=== PATIENT | male | born 1945 | race Hispanic/Latino ===

== ENCOUNTER 2019-06-22 10:23 | Day surgery (SDC) | payer OTHER ==
[2019-06-20 16:25] LABS: Absolute Lymphocytes (CBC) 1.7 K/uL (0.7-4.9); Basophils % 0.5 % (0-1.3); Lymphocytes % 22.2 % (15.3-44.8); MPV 8.7 fL (7.6-11.3)
[2019-06-20 16:29] LABS: Albumin 4.3 g/dL (3.4-5.0); Bilirubin Total 1.1 mg/dL (0.2-1.0); Potassium 4.7 mmol/L (3.5-5.1); Protein, Total 8.5 g/dL (6.4-8.2)
--- NOTE | 2019-06-20 18:25 | EKG ---
Test Date: 2019-06-20 Test Time: 15:55:12 Marina Manager: STEVEN MEASUREMENT RESULTS: Intervals: Rate: 97 NJ: 156 QRSD: 96 QT: 336 QTc: 426 Bond: P: 44 NJ: 156 QRS: 50 T: 4 INTERPRETIVE STATEMENTS: Normal sinus rhythm Cannot rule out Anterior infarct, age undetermined Abnormal ECG Compared to ECG 06/10/2012 16:09:17 Myocardial infarct finding now present Left-axis deviation no longer present Electronically Signed On 06-20-19 18:24:17 CDT by Dre Rooney
[2019-06-22] MEDS ORDERED: Ringers Lactate 1,000 ML IV ONE (10:41)
[2019-06-22] MEDS ORDERED: CEFAZOLIN/SWI 1gm 1 GM/10 ML SYR ONE (10:41)
[2019-06-22] MEDS ORDERED: PROPOFOL 200 MG/20 ML VIAL IV ONE (10:57)
[2019-06-22] MEDS ORDERED: KETOROLAC 30 MG/ML INJ ONE (10:57)
[2019-06-22] MEDS ORDERED: MIDAZOLAM HCL 2 MG/2 ML INJ ONE (10:57)
[2019-06-22] MEDS ORDERED: LIDOCAINE 2% MPF 5 ML VIAL ONE (10:57)
[2019-06-22] MEDS ORDERED: FENTANYL CITR 250 MCG/5 ML ONE (10:57)
[2019-06-22] MEDS ORDERED: EPHEDRINE SULF 50 MG/ML VIAL ONE (11:47)
--- NOTE | 2019-06-22 13:10 | RAD REPORT ---
EXAM DESCRIPTION: RAD - Wrist Left 2 View - 06/22/2019 1:04 pm CLINICAL HISTORY: Radial fracture FINDINGS: Intraoperative images demonstrate Sideplate and screws which affix a distal radial fractur e Twenty fluoroscopic spot images obtained Surgery performed by Dr Jones. Fluoroscopy time 2.3 minutes
--- NOTE | 2019-06-22 13:26 | P.BOP ---
Preoperative diagnosis: left 2 part comminuted intraarticular distal radius fracture Postoperative diagnosis: same Primary procedure: ORIF with fixation of 2 intraarticular fragments Estimated blood loss: 10 ccs Anesthesia: General Complications: None Transferred to: Recovery Room Condition: Good
[2019-06-22 13:36] VITALS: O2SAT 97
[2019-06-22 14:16] VITALS: BP 160/80; TEMP 97
[2019-06-22] MEDS ORDERED: CODEINE 30MG/APAP 300MG TAB ONE (14:25)
--- NOTE | 2019-06-23 00:25 | OP ---
Date of Procedure: 06/22/2019 Surgeon: Zac Jones MD Preoperative Diagnosis: Left distal radius comminuted intraarticular fracture. Estimated Blood Loss: Less than 10 mL. Complications: There were no complications. Specimens: No pathology specimens sent. Indication For Operation: The patient is a 74-year-old gentleman, who unfortunately injured his left upper extremity. He was seen in my office. X-rays demonstrated a comminuted intraarticular shorten ed and angulated fracture of the distal radius. All risks, benefits, and alternatives of different m ethods of addressing have been discussed with the patient, also had a significant amount of discussio n regarding nonoperative treatment. He says he understands everything as presented and at that time, opts for operative intervention. Risks, benefits, and alternatives of this were again discussed. H e states he understands things as presented and wishes to proceed. Description Of Procedure: Patient was taken to the operating room and placed in supine position. Ge neral anesthesia was obtained by Anesthesia staff. Following this, a well-padded tourniquet was plac ed on superior left arm. The left upper extremity was then prepped and draped in sterile fashion for the procedure. Following this, the arm was then elevated, but not exsanguinated. Tourniquet was ra ised. A standard volar approach of Yaya was then taken down carefully through skin and soft tissues . Meticulous hemostasis being maintained using bipolar electrocautery. This leads to the flexor car pi radialis tendon, which was retracted radialward to protect the radial artery. The sheath was then exploited and the tendon and muscle belly of the flexor pollicis longus was encountered. This was t hen retracted ulnarward to protect the median nerve. The pronator quadratus was divided in its mid-s ubstance and then gently elevated off the radius to reveal the fracture site. The fracture site itse lf was comminuted. 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 This was followed by placement of the Acumed 2 distal radius plate. This was placed in standard fashion, however, was a slight amount mor e radial than I would have liked. This was appreciated after at least 2 screws had been placed in os teopenic bone. Therefore, judgment was used removing these screws and shifting the plate over would probably affect the stability more than just not using one of the radial styloid pegs and it appeared that the ulnar aspect of it was covered by the plate and should not lose purchase. Therefore, jois ion was made to continue. The remainder of the pegs were then placed without difficulty. The remain unique of screws were checked on biplanar C-arm radiography and the screws were in appropriate length an d not intraarticular. Following this, the wound was irrigated and skin was closed using interrupted Vicryl sutures. The patient was placed in a well-padded sterile dressing as well as a sugar-tong spl int. He was awakened and taken to recovery room in good condition with no complications. /TIESHA Voice ID: [id number] Report ID: [id number]
== END 2019-06-22 14:55 | disposition home or self-care (01) ==
LOC: OR 10:23
PROVIDERS: ATTEND Orthopaedic Surgery
PROC: 0PSJ04Z Reposition Left Radius with Internal Fixation Device, Open Approach (ICD-10-PCS; principal; 2019-06-22 11:30)
DX: S52.572A Other intraarticular fracture of lower end of left radius, initial encounter for closed fracture (principal); I10 Essential (primary) hypertension; M19.90 Unspecified osteoarthritis, unspecified site
CPT/HCPCS: 93005; 85025; 36415; 80053; 73100; 25608; J2704; J2250; J3010; J0690; J7120

== ENCOUNTER 2021-06-17 15:34 | Emergency (ER) | payer OTHER ==
--- NOTE | 2021-06-17 17:35 | ER ---
Nurse's Notes [facility] Name: Hussein Bernal Jr Age: 76 yrs Sex: Male : 1945 Arrival Date: 06/17/2021 Time: 15:35 Bed DIS1 Private MD: Diagnosis: Essential (primary) hypertension Presentation: 06/17 17:10 Chief complaint: Patient states: Sent from the [place] clinic for high blood pressure, 200 jl7 systolic, no history. Denies STACK, blurred vision, dizziness, denies CP and SOB. Coronavirus screen: At this time, the client does not indicate any symptoms associated with coronavirus-19. Ebola Screen: No symptoms or risks identified at this time. Initial Sepsis Screen: Does the patient meet any 2 criteria? No. Patient's initial sepsis screen is negative. Does the patient have a suspected source of infection? No. Patient's initial sepsis screen is negative. Risk Assessment: Do you want to hurt yourself or someone else? Patient reports no desire to harm self or others. Onset of symptoms is unknown. Care prior to arrival: None. 17:10 Method Of Arrival: Ambulatory jl7 17:10 Acuity: CHAD 3 jl7 Triage Assessment: 17:12 General: Appears in no apparent distress. uncomfortable, Behavior is calm, cooperative, jl7 appropriate for age. Pain: Denies pain. Historical: - Allergies: 17:12 No Known Allergies; jl7 - Home Meds: 17:12 None [Active]; jl7 - PMHx: 17:12 None; jl7 - PSHx: 17:12 None; jl7 - Immunization history:: Adult Immunizations not up to date, Client reports having NOT received the Covid vaccine. - Social history:: Smoking status: Patient denies any tobacco usage or history of. Screenin:30 Abuse screen: Denies threats or abuse. Denies injuries from another. Nutritional ld1 screening: No deficits noted. Tuberculosis screening: No symptoms or risk factors identified. Fall Risk None identified. Assessment: 17:30 General: Appears in no apparent distress. comfortable, Behavior is cooperative, ld1 appropriate for age, anxious. Pain: Denies pain. Neuro: Level of Consciousness is awake, alert, obeys commands, Oriented to person, place, time, situation. Cardiovascular: Capillary refill < 3 seconds Patient's skin is warm and dry. Rhythm is sinus rhythm. Respiratory: Airway is patent Respiratory effort is even, unlabored, Respiratory pattern is regular, symmetrical. GI: Abdomen is flat, non-distended. EENT: No signs and/or symptoms were reported regarding the EENT system. Derm: No signs and/or symptoms reported regarding the dermatologic system. Musculoskeletal: No signs and/or symptoms reported regarding the musculoskeletal system. Vital Signs: 17:12 BP 185 / 100 LA; Pulse 94; Resp 17; Temp 97.8; Pulse Ox 100% ; Weight 86.18 kg; Height jl7 5 ft. 7 in. (170.18 cm); Pain 0/10; 17:12 BP 186 / 97 RA; jl7 17:30 BP 201 / 105; Pulse 89; Resp 18; Pulse Ox 99% on R/A; Pain 0/10; ld1 18:08 BP 137 / 81; Pulse 86; Resp 18; Pulse Ox 100% ; ld1 17:12 Body Mass Index 29.76 (86.18 kg, 170.18 cm) jl7 ED Course: 15:35 Patient arrived in ED. as 17:12 Triage completed. jl7 17:12 Arm band placed on right wrist. jl7 17:15 Taran Ryder PA is PHCP. jr8 17:15 Jorden Henson MD is Attending Physician. jr8 17:30 Patient has correct armband on for positive identification. Bed in low position. Call ld1 light in reach. Pulse ox on. NIBP on. Warm blanket given. 17:30 No provider procedures requiring assistance completed. ld1 18:11 Patient did not have IV access during this emergency room visit. ld1 Administered Medications: 17:37 Drug: cloNIDine 0.2 mg Route: PO; ld1 Outcome: 17:34 Discharge ordered by . jr8 18:11 Discharged to home ambulatory. ld1 18:11 Condition: stable 18:11 Discharge instructions given to patient, Instructed on discharge instructions, follow up and referral plans. medication usage, Demonstrated understanding of instructions, follow-up care, medications. 18:11 Patient left the ED. ld1 Signatures: Sahara Preciado Josh, PA PA jr8 Roxana Abdi RN RN jl7 Tiarra Nelson RN RN ld1
--- NOTE | 2021-06-17 17:35 | EDPHYS ---
Physician Documentation [facility] Name: Hussein Bernal Jr Age: 76 yrs Sex: Male : 1945 Arrival Date: 06/17/2021 Time: 15:35 Bed DIS1 Private MD: ED Physician Jorden Henson HPI: 06/17 17:32 This 76 yrs old Male presents to ER via Ambulatory with complaints of High jr8 Blood Pressure. 17:32 The patient has elevated blood pressure and discovered this at a physician's office. jr8 Associated signs and symptoms: The patient has no apparent associated signs or symptoms. Severity of symptoms: At its worst the blood pressure was moderate. It is unknown whether or not the patient has had similar symptoms in the past. The patient has been recently seen by a physician:. 17:32 This is a 76-year-old male patient that was referred from the [place] to emergency room for jr8 further evaluation of his hypertension. Patient stated that he is always been hypertensive somewhat but has never had to be put on medicine. Patient currently without any signs and symptoms at this time. Patient stated that he had blood work yesterday and was going back today for results but the physician can see him today so they had to reschedule. They had taken his blood pressure and saw that it was markedly elevated. Referred at that time to emergency room for further evaluation.. Historical: - Allergies: 17:12 No Known Allergies; jl7 - Home Meds: 17:12 None [Active]; jl7 - PMHx: 17:12 None; jl7 - PSHx: 17:12 None; jl7 - Immunization history:: Adult Immunizations not up to date, Client reports having NOT received the Covid vaccine. - Social history:: Smoking status: Patient denies any tobacco usage or history of. ROS: 17:32 Constitutional: Negative for fever, chills, and weight loss, Eyes: Negative for injury, jr8 pain, redness, and discharge, ENT: Negative for injury, pain, and discharge, Neck: Negative for injury, pain, and swelling, Cardiovascular: Negative for chest pain, palpitations, and edema, Respiratory: Negative for shortness of breath, cough, wheezing, and pleuritic chest pain, Abdomen/GI: Negative for abdominal pain, nausea, vomiting, diarrhea, and constipation, Back: Negative for injury and pain, MS/Extremity: Negative for injury and deformity, Skin: Negative for injury, rash, and discoloration, Neuro: Negative for headache, weakness, numbness, tingling, and seizure. Exam: 17:32 Constitutional: This is a well developed, well nourished patient who is awake, alert, jr8 and in no acute distress. Neck: Trachea midline, no thyromegaly or masses palpated, and no cervical lymphadenopathy. Supple, full range of motion without nuchal rigidity, or vertebral point tenderness. No Meningismus. Cardiovascular: Regular rate and rhythm with a normal S1 and S2. No gallops, murmurs, or rubs. Normal PMI, no JVD. No pulse deficits. Respiratory: Lungs have equal breath sounds bilaterally, clear to auscultation and percussion. No rales, rhonchi or wheezes noted. No increased work of breathing, no retractions or nasal flaring. Abdomen/GI: Soft, non-tender, with normal bowel sounds. No distension or tympany. No guarding or rebound. No evidence of tenderness throughout. Skin: Warm, dry with normal turgor. Normal color with no rashes, no lesions, and no evidence of cellulitis. MS/ Extremity: Pulses equal, no cyanosis. Neurovascular intact. Full, normal range of motion. Neuro: Awake and alert, GCS 15, oriented to person, place, time, and situation. Cranial nerves II-XII grossly intact. Motor strength 5/5 in all extremities. Sensory grossly intact. Cerebellar exam normal. Normal gait. Vital Signs: 17:12 BP 185 / 100 LA; Pulse 94; Resp 17; Temp 97.8; Pulse Ox 100% ; Weight 86.18 kg; Height jl7 5 ft. 7 in. (170.18 cm); Pain 0/10; 17:12 BP 186 / 97 RA; jl7 17:30 BP 201 / 105; Pulse 89; Resp 18; Pulse Ox 99% on R/A; Pain 0/10; ld1 18:08 BP 137 / 81; Pulse 86; Resp 18; Pulse Ox 100% ; ld1 17:12 Body Mass Index 29.76 (86.18 kg, 170.18 cm) 7 MDM: 17:15 Patient medically screened. 8 17:31 Data reviewed: vital signs, nurses notes, and as a result, I will discharge patient. jr8 Data interpreted: Pulse oximetry: on room air is 99 %. Interpretation: normal. Counseling: I had a detailed discussion with the patient and/or guardian regarding: the historical points, exam findings, and any diagnostic results supporting the discharge/admit diagnosis, the need for outpatient follow up, a family practitioner, to return to the emergency department if symptoms worsen or persist or if there are any questions or concerns that arise at home. ED course: Has had a longstanding hypertensive problem. Has not been put on medicine in the past though. Patient recently had blood work yesterday. Patient completely asymptomatic at this time but does have elevated blood pressure. Will treat patient's blood pressure here and will start him on something. Discussed with him that he needs to refollow-up with the [facility] [place] [facility] to get his blood work. If he were to become symptomatic to come back for further evaluation. Patient good with plan at this time.. Administered Medications: 17:37 Drug: cloNIDine 0.2 mg Route: PO; ld1 Disposition: 06/18 07:55 Co-signature as Attending Physician, Jorden Henson MD I agree with the assessment and gertrude plan of care. Disposition Summary: 06/17/21 17:34 Discharge Ordered Location: Home jr8 Problem: new jr8 Symptoms: have improved jr8 Condition: Stable jr8 Diagnosis - Essential (primary) hypertension jr8 Followup: jr8 - With: Private Physician - When: 1 - 2 days - Reason: Recheck today's complaints, Continuance of care, Re-evaluation by your physician Discharge Instructions: - Discharge Summary Sheet jr8 - Hypertension, Adult jr8 Forms: - Medication Reconciliation Form jr8 - Thank You Letter jr8 - Antibiotic Education jr8 - Prescription Opioid Use jr8 Prescriptions: - amlodipine 5 mg Oral tablet - take 1 tablet by ORAL route once daily; 30 tablet; Refills: 0, Product jr8 Selection Permitted Signatures: Jorden Henson MD MD cha Roszak, Josh, PA PA jr8 Roxana Abdi RN RN jl7 Tiarra Nelson RN RN ld1
[2021-06-17] MEDS ORDERED: cloNIDine HCL 0.1 MG TAB ONE (18:00)
[2021-06-17 18:15] VITALS: TEMP 97.8
[2021-06-17 18:18] VITALS: BP 137/81; O2SAT 100
== END 2021-06-17 18:11 | disposition home or self-care (01) ==
LOC: ER 15:34
DX: I10 Essential (primary) hypertension (principal)
CPT/HCPCS: 99284

== ENCOUNTER 2021-06-20 16:28 | Emergency (ER) | payer OTHER ==
--- NOTE | 2021-06-20 18:31 | EDPHYS ---
Physician Documentation [facility] Name: Hussein Bernal Jr Age: 76 yrs Sex: Male : 1945 Arrival Date: 06/20/2021 Time: 16:30 Bed 13 Private MD: ED Physician Xu Martin HPI: 06/20 17:04 This 76 yrs old Male presents to ER via Ambulatory with complaints of High rn Blood Pressure. 17:04 The patient has elevated blood pressure and discovered this at home. Onset: The rn symptoms/episode began/occurred at an unknown time. Modifying factors:. Associated signs and symptoms: Pertinent negatives: chest pain, dizziness, dyspnea, headache, lightheadedness, nausea, visual changes, vomiting, weakness. Severity of symptoms: At its worst the blood pressure was severe, in the emergency department the blood pressure is unchanged. The patient has experienced similar episodes in the past. The patient has been recently seen at the [facility] Emergency Department. Patient states seen recently here in ER for high blood pressure. Started on amlodipine 5 mg daily 3 days ago. Initially was bringing pressure down to 140s or 150s, but today blood pressure in the 180s to 200s systolic. States he feels fine and has no complaints but was sitting at home and felt like he was going to have a stroke if did not come in. Denies any focal complaints at this time. Historical: - Allergies: 16:37 No Known Allergies; ll1 - PMHx: 16:37 Hypertensive disorder; ll1 - PSHx: 16:37 hernia repair; ll1 - Immunization history:: Adult Immunizations up to date. - Social history:: Smoking status: Patient denies any tobacco usage or history of. - Family history:: not pertinent. - Hospitalizations: : No recent hospitalization is reported. ROS: 17:04 Constitutional: Negative for fever, chills, and weight loss, Eyes: Negative for injury, rn pain, redness, and discharge, Neck: Negative for injury, pain, and swelling, Cardiovascular: Negative for chest pain, palpitations, and edema, Respiratory: Negative for shortness of breath, cough, wheezing, and pleuritic chest pain, Abdomen/GI: Negative for abdominal pain, nausea, vomiting, diarrhea, and constipation, Back: Negative for injury and pain, : Negative for injury, bleeding, discharge, and swelling, MS/Extremity: Negative for injury and deformity, Skin: Negative for injury, rash, and discoloration, Neuro: Negative for headache, weakness, numbness, tingling, and seizure. 17:04 All other systems are negative. Exam: 17:04 Constitutional: This is a well developed, well nourished patient who is awake, alert, rn and in no acute distress. Head/Face: Normocephalic, atraumatic. Eyes: Pupils equal round and reactive to light, extra-ocular motions intact. Lids and lashes normal. Conjunctiva and sclera are non-icteric and not injected. Cornea within normal limits. Periorbital areas with no swelling, redness, or edema. Neck: Trachea midline, no masses palpated. Supple, full range of motion without nuchal rigidity, or vertebral point tenderness. No Meningismus. Cardiovascular: Regular rate and rhythm. No pulse deficits. Respiratory: No increased work of breathing, no retractions or nasal flaring. Abdomen/GI: Soft, non-tender Skin: Warm, dry with normal turgor. Normal color with no rashes, no lesions, and no evidence of cellulitis. MS/ Extremity: Pulses equal, no cyanosis. Neurovascular intact. Full, normal range of motion. Equal circumference. Neuro: Awake and alert, GCS 15, oriented to person, place, time, and situation. Cranial nerves II-XII grossly intact. Motor strength 5/5 in all extremities. Sensory grossly intact. Cerebellar exam normal. Normal gait. 17:32 ECG was reviewed by the Attending Physician. rn Vital Signs: 16:38 BP 205 / 100; Pulse 95; Resp 18; Temp 98.4; Pulse Ox 100% ; Weight 75.75 kg; Height 5 ll1 ft. 7 in. (170.18 cm); Pain 0/10; 18:35 BP 158 / 98; Pulse 100; Resp 19; Pulse Ox 100% on R/A; es2 16:38 Body Mass Index 26.16 (75.75 kg, 170.18 cm) ll1 MDM: 16:32 Patient medically screened. rn 17:36 ED course: Patient instructed to take extra dose of his amlodipine. We will continue to rn observe blood pressure response.. 18:24 Differential diagnosis: hypertensive crisis, Malignant HTN, asymptomatic HTN. Data rn reviewed: vital signs, nurses notes, EKG, and as a result, I will discharge patient. Counseling: I had a detailed discussion with the patient and/or guardian regarding: the historical points, exam findings, and any diagnostic results supporting the discharge/admit diagnosis, the need for outpatient follow up, to return to the emergency department if symptoms worsen or persist or if there are any questions or concerns that arise at home. Response to treatment: the patient's symptoms have markedly improved after treatment, and as a result, I will discharge patient. Special discussion: I discussed with the patient/guardian in detail that at this point there is no indication for admission to the hospital. It is understood, however, that if the symptoms persist or worsen the patient needs to return immediately for re-evaluation. Based on the history and exam findings, there is no indication for further emergent testing or inpatient evaluation. I discussed with the patient/guardian the need to see the rn hemodialysis charge for further evaluation of the symptoms. I discussed with the patient/guardian the need to see the primary care provider for further evaluation of the symptoms. ED course: Patient ended up not taking his extra blood pressure medication, and blood pressure came down to 150s systolic. Patient just started on medication 2 days ago. Will DC home with continuation of 5 mg of amlodipine daily with PCP follow-up and once daily medication for now. After a week or 2 can follow-up with PCP with blood pressure numbers and figure out if needs titration or addition of another agent.. 06/20 16:48 Order name: EKG; Complete Time: 16:48 rn 06/20 16:48 Order name: Cardiac monitoring; Complete Time: 17:25 rn 06/20 16:48 Order name: EKG - Nurse/Tech; Complete Time: 17:22 rn EC:32 Rate is 102 beats/min. Rhythm is regular. Left axis deviation noted. QRS is positive in rn lead I and negative in lead aVF. MO interval is normal. QRS interval is normal. QT interval is normal. No Q waves. T waves are Normal. No ST changes noted. Clinical impression: Sinus tachycardia. Interpreted by me. Reviewed by me. Administered Medications: No medications were administered Disposition Summary: 06/20/21 18:31 Discharge Ordered Location: Home rn Problem: new rn Symptoms: have improved rn Condition: Stable rn Diagnosis - Essential (primary) hypertension rn Followup: rn - With: Private Physician - When: 1 week - Reason: Recheck today's complaints, Re-evaluation by your physician Discharge Instructions: - Discharge Summary Sheet rn - Hypertension, Adult rn - How to Take Your Blood Pressure, [id number] rn Forms: - Medication Reconciliation Form rn - Thank You Letter rn - Antibiotic mba intern - Prescription Opioid Use rn Signatures: Xu Martin MD MD rn Lewis, Lynsay, RN RN 1
--- NOTE | 2021-06-20 18:31 | ER ---
Nurse's Notes [facility] Name: Hussein Bernal Jr Age: 76 yrs Sex: Male : 1945 Arrival Date: 06/20/2021 Time: 16:30 Bed 13 Private MD: Diagnosis: Essential (primary) hypertension Presentation: 06/20 16:38 Chief complaint: Patient states: Was here 3 days ago for high BP. BP is still high ll1 although he is taking the amlodipine as prescribed. Coronavirus screen: Client denies travel out of the [place] in the last 14 days. At this time, the client does not indicate any symptoms associated with coronavirus-19. Ebola Screen: Patient denies travel to an Ebola-affected area in the 21 days before illness onset. Initial Sepsis Screen: Does the patient meet any 2 criteria? HR > 90 bpm. No. Patient's initial sepsis screen is negative. Does the patient have a suspected source of infection? No. Patient's initial sepsis screen is negative. Risk Assessment: Do you want to hurt yourself or someone else? Patient reports no desire to harm self or others. Onset of symptoms was June 17, 2021. 16:38 Method Of Arrival: Ambulatory ll1 16:38 Acuity: CHAD 3 ll1 Historical: - Allergies: 16:37 No Known Allergies; ll1 - PMHx: 16:37 Hypertensive disorder; ll1 - PSHx: 16:37 hernia repair; ll1 - Immunization history:: Adult Immunizations up to date. - Social history:: Smoking status: Patient denies any tobacco usage or history of. - Family history:: not pertinent. - Hospitalizations: : No recent hospitalization is reported. Screenin:37 Abuse screen: Denies threats or abuse. Nutritional screening: No deficits noted. tw2 Tuberculosis screening: No symptoms or risk factors identified. Fall Risk Secondary diagnosis (15 points) impaired mobility. Assessment: 18:35 General: Appears well developed, well nourished, Behavior is calm, cooperative, es2 appropriate for age. Pain: Denies pain. Neuro: Level of Consciousness is awake, alert, obeys commands, Oriented to person, place, time, situation, Appropriate for age Gait is steady, Speech is normal. Cardiovascular: Capillary refill < 3 seconds Patient's skin is warm and dry. Respiratory: Airway is patent Trachea midline Respiratory effort is even, Respiratory pattern is regular. GI: No signs and/or symptoms were reported involving the gastrointestinal system. : No signs and/or symptoms were reported regarding the genitourinary system. EENT: No signs and/or symptoms were reported regarding the EENT system. Derm: No signs and/or symptoms reported regarding the dermatologic system. Musculoskeletal: No signs and/or symptoms reported regarding the musculoskeletal system. Vital Signs: 16:38 BP 205 / 100; Pulse 95; Resp 18; Temp 98.4; Pulse Ox 100% ; Weight 75.75 kg; Height 5 ll1 ft. 7 in. (170.18 cm); Pain 0/10; 18:35 BP 158 / 98; Pulse 100; Resp 19; Pulse Ox 100% on R/A; es2 16:38 Body Mass Index 26.16 (75.75 kg, 170.18 cm) ll1 ED Course: 16:30 Patient arrived in ED. mr 16:32 Xu Martin MD is Attending Physician. rn 16:35 Pat Curiel RN is Primary Nurse. es2 16:37 Bed in low position. Call light in reach. tw2 16:37 Arm band placed on. tw2 16:37 Patient placed in an exam room, on a stretcher. ll1 16:40 Triage completed. ll1 18:36 No provider procedures requiring assistance completed. Patient did not have IV access es2 during this emergency room visit. Administered Medications: No medications were administered Outcome: 18:31 Discharge ordered by . rn 18:41 Patient left the ED. es2 Signatures: Rosina Jimenes mr Xu Martin MD MD rn Wise, Tara, RN RN 2 Zuleima Bridges RN RN 1 Pat Curiel RN RN 2
[2021-06-20 18:47] VITALS: TEMP 98.4; O2SAT 100
[2021-06-20 18:48] VITALS: BP 158/98
== END 2021-06-20 18:41 | disposition home or self-care (01) ==
LOC: ER 16:28
DX: I10 Essential (primary) hypertension (principal)
CPT/HCPCS: 93005; 99281